=== PATIENT | female | born 1930 ===

== ENCOUNTER 2021-02-10 23:02 | Emergency (ER) | payer OTHER ==
[~2021-02-10] VITALS: Ht 165.1 cm; Wt 61.2 kg
[2021-02-10 23:27] VITALS: BP 134/96
[2021-02-10] MEDS ORDERED: DILTIAZEM HCL 25 MG IV IV ONE (23:30)
[2021-02-10] MEDS ORDERED: DILTIAZEM HCL 25 MG IV ONE ×2 (23:31→23:49)
[2021-02-10 23:37] LABS: HEMATOCRIT 35.5 % (31.2-41.9); MEAN CORPUSCULAR HEMOGLOBIN 30.9 uug (24.7-32.8); MEAN CORPUSCULAR VOLUME 94.4 fL (75.5-95.3); PLATELET COUNT (AUTO) 205 K/uL (179-408)
[2021-02-10 23:45] LABS: CREATININE 1.2 mg/dL (0.6-1.3)
[2021-02-11] MEDS ORDERED: FURO20TA4 PO (01:01)
[2021-02-11] MEDS ORDERED: ASPI81TA31 PO (01:01)
== END 2021-02-11 05:38 | disposition short-term general hospital (02) ==
LOC: ER 23:07
DX: I48.91 Unspecified atrial fibrillation (principal); I21.4 Non-ST elevation (NSTEMI) myocardial infarction; Z20.822 Contact with and (suspected) exposure to COVID-19; Z79.899 Other long term (current) drug therapy; Z79.82 Long term (current) use of aspirin; I50.9 Heart failure, unspecified; I25.10 Atherosclerotic heart disease of native coronary artery without angina pectoris; N18.30 Chronic kidney disease, stage 3 unspecified; Z87.09 Personal history of other diseases of the respiratory system
CPT/HCPCS: 36415; 71045; 80048; 84484; 85025; 87426; 93005 ×2; 96374; 99291; J3490; 70030-TC; A4663